=== PATIENT | male | born 1995 | race Two or more races ===

== ENCOUNTER 2021-04-14 16:09 | Inpatient (IN) | payer OTHER ==
[~2021-04-14] VITALS: Ht 180.3 cm; Wt 119.7 kg
[2021-04-14] MEDS ORDERED: Z GUARD REMEDY PASTE 57 GM TUBE TOP PRN (20:00)
[2021-04-14] MEDS ORDERED: OLAN15TA3 PO (23:17)
[2021-04-14] MEDS ORDERED: DOCU100C36 PO (23:17)
[2021-04-14] MEDS ORDERED: ACET-73 PO (23:17)
[2021-04-14] MEDS ORDERED: GABA-532 PO (23:17)
[2021-04-14] MEDS ORDERED: POLY119P2 PO (23:17)
[2021-04-14] MEDS ORDERED: HALO5TAB PO (23:17)
[2021-04-14] MEDS ORDERED: TEMA15CA PO (23:17)
[2021-04-14] MEDS ORDERED: SENN1TAB77 PO (23:17)
[2021-04-14] MEDS ORDERED: CITA10TA9 PO (23:17)
[2021-04-14] MEDS ORDERED: OXYC10TA49 PO (23:17)
[2021-04-14] MEDS ORDERED: MAGN30OR PO (23:17)
[2021-04-14] MEDS ORDERED: BISA-79 PO (23:17)
[2021-04-14] MEDS ORDERED: OXYC5CAP18 PO (23:17)
[2021-04-14] MEDS ORDERED: ENOX300V4 SQ (23:17)
[2021-04-14] MEDS ORDERED: QUET100T PO (23:17)
[2021-04-14 23:51] VITALS: BP 142/90
[2021-04-15] MEDS ORDERED: POLYETHYLENE GLYCOL 3350 238 GM POWDER PO SCH (00:15)
[2021-04-15] MEDS ORDERED: QUETIAPINE FUMARATE 100 MG TABLET PO PRN (00:15)
[2021-04-15] MEDS ORDERED: HALOPERIDOL 5 MG TABLET PO PRN ×2 (00:15→08:45)
[2021-04-15] MEDS ORDERED: TEMAZEPAM 15 MG CAPSULE PO SCH (00:15)
[2021-04-15] MEDS ORDERED: SENNOSIDES/DOCUSATE SODIUM TABLET PO SCH (00:15)
[2021-04-15] MEDS ORDERED: PIPERACILLIN SODIUM/TAZOBACTAM 3.375 G in IV DEXTROSE 5% 50 ML IV ONE (00:45)
[2021-04-15] MEDS: OXYCODONE HCL 5 MG TABLET PO PRN ×3 (01:14→20:50)
[2021-04-15] MEDS ORDERED: PIPERACILLIN/TAZOBACTAM/D5W 50 ML IV ONE (01:36)
--- NOTE | 2021-04-15 04:33 | NUR ---
Received a 25 yr old male from [facility] with admitting diagnosis of pelvic fracture secondary to fall. Patient also has fracture of right elbow where he has surgery S/P ORIF of the right elbow. RUE with splint and with kamlesh wrap then with an arm sling. (+) good pulse, no edema, (+) CSM. able to wiggle fingers. AAOx3-4 with some periods of hallucinations at times. Dr Barrios aware of patient's admission as Dr Heredia. Complained of pelvic pain, Oxycodone 10 mg given as ordered with relief noted. Voiding well in the urinal. BM noted this shift. Has left hand #22 INT flushed and patent, Zosyn 3.375 given as ordered. All due meds given as needed. Skin wylie, patient has some bruises on his right leg, right forehead laceration, lips cracked and dry. Will monitor patient.
[2021-04-15 04:57] VITALS: BP 144/89
[2021-04-15] MEDS: ACETAMINOPHEN ES 500 MG TABLET PO SCH ×3 (05:45→23:17)
[2021-04-15] MEDS ORDERED: PIPERACILLIN SODIUM/TAZOBACTAM 3.375 G in IV DEXTROSE 5% 50 ML IV SCH (06:00)
--- NOTE | 2021-04-15 06:53 | NUR ---
End of shift notes: Sleeping on & off. Needs attended. Voiding freely in urinal. IV ABT given as scheduled. Tolerated well. No ill effects noted. Will monitor patient.
--- NOTE | 2021-04-15 07:49 | NUR ---
Received in bed awake and responsive. In no acute distress. Noted with RUE wrap with kamlesh bandage and sling. No bleeding noted. Dressing is intact. Patient is able to move fingers. No edema noted. Denies pain on right upper extremity. He is comfortable. Call light in reach. Will continue to monitor.
[2021-04-15 08:00] VITALS: BP 142/82
[2021-04-15] MEDS ORDERED: SENNOSIDES/DOCUSATE SODIUM TABLET PO PRN (08:32)
[2021-04-15] MEDS: DOCUSATE SODIUM 100 MG CAPSULE PO SCH ×2 (08:38→16:22)
[2021-04-15] MEDS: OLANZAPINE 5 MG TABLET PO SCH ×2 (08:39→16:23)
[2021-04-15] MEDS: GABAPENTIN 100 MG CAPSULE PO SCH ×3 (08:39→16:22)
[2021-04-15] MEDS ORDERED: ENOXAPARIN SODIUM 40 MG/0.4 ML DISP.SYRIN SQ SCH (09:00)
[2021-04-15] MEDS ORDERED: HYDROCODONE/APAP 10-325 MG TABLET PO PRN (09:00)
[2021-04-15] MEDS ORDERED: BISACODYL 5 MG TABLET.DR PO SCH ×2 (09:00)
[2021-04-15] MEDS ORDERED: ENOXAPARIN SODIUM 30 MG/0.3 ML DISP.SYRIN SQ SCH (09:00)
[2021-04-15] MEDS: PIPERACILLIN SODIUM/TAZOBACTAM 3.37 G in IV DEXTROSE 5% 100 ML IV SCH ×3 (09:55→23:17)
--- NOTE | 2021-04-15 10:28 | NUR ---
JUSTO Note: JUSTO requested for a Psychiatry Consult for patient and spoke with nurse, Simi PULLIAM who confirmed she will put in the request.
[2021-04-15] MEDS ORDERED: BISACODYL 10 MG SUPP.RECT RC PRN (10:30)
[2021-04-15] MEDS: CITALOPRAM 10 MG TABLET PO SCH (10:32)
[2021-04-15] MEDS ORDERED: BISA10SU61 RC (10:33)
[2021-04-15] MEDS ORDERED: HALO5VIA9 IM (10:36)
[2021-04-15] MEDS ORDERED: HALOPERIDOL LACTATE 5 MG/1 ML VIAL IM PRN (10:45)
[2021-04-15 10:46] LABS: BASOPHILS # (AUTO) 0.1 K/uL (0.0-8.0); BASOPHILS % (AUTO) 0.8 % (0.0-2.0); EOSINOPHILS # (AUTO) 0.2 K/uL (0.0-0.7); EOSINOPHILS % (AUTO) 1.7 % (0.0-7.0); HEMATOCRIT 34.2 % (36.7-47.1); HEMOGLOBIN 11.7 g/dL (12.5-16.3); LYMPHOCYTES # (AUTO) 1.6 K/uL (20.0-40.0); LYMPHOCYTES % (AUTO) 15.4 % (20.5-51.5); MEAN CORPUSCULAR HEMOGLOBIN 30.7 uug (23.8-33.4); MEAN CORPUSCULAR HGB CONC 34 g/dL (32.5-36.3); MEAN CORPUSCULAR VOLUME 89.7 fL (73.0-96.2); MONOCYTES % (AUTO) 9.5 % (0.0-11.0); NEUTROPHILS # (AUTO) 7.4 K/uL (1.8-8.9); NEUTROPHILS % (AUTO) 72.6 % (38.5-71.5); PLATELET COUNT (AUTO) 903 K/uL (152-348); RED BLOOD CELL COUNT(AUTO) 3.81 MIL/uL (4.06-5.63); WHITE BLOOD COUNT (AUTO) 10.2 K/uL (3.6-10.2)
[2021-04-15 10:54] LABS: BILIRUBIN,TOTAL 0.6 mg/dL (0.2-1.0); CREATININE 0.8 mg/dL (0.6-1.3); POTASSIUM 3.5 mmol/L (3.5-5.1); TOTAL PROTEIN, SERUM 7.4 g/dL (6.4-8.2)
--- NOTE | 2021-04-15 13:07 | NUR ---
Called to patient's room found IV on left hand pulled out by the patient. He was mumbling to himself that he was scared that the snake was going to bite him and that he was anxious about a can marker laughing at him about a court case. Reoriented patient. Agreed to insert another iv line after lunch.
[2021-04-15] MEDS ORDERED: LORAZEPAM 2 MG/1 ML VIAL IV PRN (15:00)
[2021-04-15 16:21] VITALS: BP 136/87
[2021-04-15] MEDS: QUETIAPINE FUMARATE 100 MG TABLET PO SCH (16:25)
--- NOTE | 2021-04-15 19:30 | NUR ---
PATIENT AWAKE IN BED, NO COMPLAINS OF ANY PAIN OR DISCOMFORT AT THIS TIME. WILL REPORT TO ONCOMING SHIFT.
[2021-04-15 20:00] VITALS: BP 130/73
[2021-04-16] MEDS: TEMAZEPAM 15 MG CAPSULE PO PRN (00:05)
[2021-04-16 04:00] VITALS: BP 126/71
[2021-04-16] MEDS: PIPERACILLIN SODIUM/TAZOBACTAM 3.37 G in IV DEXTROSE 5% 100 ML IV SCH (06:53)
[2021-04-16] MEDS: ACETAMINOPHEN ES 500 MG TABLET PO SCH ×3 (06:56→21:00)
--- NOTE | 2021-04-16 07:20 | NUR ---
received report, patient in bed sleeping, arousal to name. no complains of any discomfort. call light within reach. will continue to monitor.
[2021-04-16] MEDS: OXYCODONE HCL 5 MG TABLET PO PRN (08:40)
[2021-04-16] MEDS: GABAPENTIN 100 MG CAPSULE PO SCH ×3 (08:40→16:49)
[2021-04-16] MEDS: CITALOPRAM 10 MG TABLET PO SCH (08:40)
[2021-04-16] MEDS: QUETIAPINE FUMARATE 100 MG TABLET PO SCH ×2 (08:40→16:49)
[2021-04-16] MEDS: ENOXAPARIN SODIUM 40 MG/0.4 ML DISP.SYRIN SQ SCH (08:47)
[2021-04-16] MEDS: OLANZAPINE 5 MG TABLET PO SCH ×2 (09:00→16:50)
[2021-04-16] MEDS: DOCUSATE SODIUM 100 MG CAPSULE PO SCH ×2 (09:00→16:49)
[2021-04-16 10:47] VITALS: BP 136/77
--- NOTE | 2021-04-16 14:50 | NUR ---
notified BOWLING ALLEY MANAGER Pola Villatoro, patient very sleepy during physical therapy,but arousable to name. per BOWLING ALLEY MANAGER Pola Villatoro ammonia level was ordered.
[2021-04-16 15:18] VITALS: BP 123/69
--- NOTE | 2021-04-16 16:00 | NUR ---
patient awake and alert x4, no complain of pain or discomfort. assisted to use urinal, patient requested food. patient called his family. call light within reach. will continue to monitor.
--- NOTE | 2021-04-16 18:32 | NUR ---
patient in bed sleeping arousable to name, no complains of any pain or discomfort, call light kept within reach. will report to oncoming shift.
--- NOTE | 2021-04-16 19:45 | NUR ---
Patient asleep but arousable, girlfriend at bedside, patient look comfortable, no sob no chest pain, uses urinal for elimination, cont to monitor, r arm with sling.
[2021-04-16 20:00] VITALS: BP 135/82
[2021-04-17 04:38] VITALS: BP 125/80
[2021-04-17] MEDS: OXYCODONE HCL 5 MG TABLET PO PRN ×3 (04:52→18:21)
--- NOTE | 2021-04-17 05:52 | NUR ---
Patient complain of pelvic pain, r shoulder, given oxy 10mg po for pain, but still have pain, crying, and moaning, assisted with positioning but not effective, will assess again in few minutes.
[2021-04-17] MEDS: ACETAMINOPHEN ES 500 MG TABLET PO SCH ×3 (06:00→21:29)
[2021-04-17] MEDS: HYDROMORPHONE 1 MG/1 ML DISP.SYRIN IV PRN ×2 (06:04→12:09)
--- NOTE | 2021-04-17 06:04 | NUR ---
Patient still complain of pain, crying for pain, given dilaudid 0.5mg iv for breakthrough pain, cont to monitor.
[2021-04-17] MEDS: OLANZAPINE 5 MG TABLET PO SCH ×2 (08:16→16:59)
[2021-04-17] MEDS: DOCUSATE SODIUM 100 MG CAPSULE PO SCH ×2 (08:16→16:59)
[2021-04-17] MEDS: CITALOPRAM 10 MG TABLET PO SCH (08:16)
[2021-04-17] MEDS: GABAPENTIN 100 MG CAPSULE PO SCH ×3 (08:17→16:59)
[2021-04-17] MEDS: QUETIAPINE FUMARATE 100 MG TABLET PO SCH ×2 (08:17→16:59)
[2021-04-17] MEDS: ENOXAPARIN SODIUM 40 MG/0.4 ML DISP.SYRIN SQ SCH (08:21)
[2021-04-17 08:27] VITALS: BP 129/83
--- NOTE | 2021-04-17 10:45 | NUR ---
Dilaudid 1mg wasted with another nurse on duty Yenny PULLIAM
[2021-04-17 15:58] VITALS: BP 125/77
[2021-04-17] MEDS: MIRALAX 17 GM POWD.PACK PO PRN (17:01)
[2021-04-17 20:34] VITALS: BP 136/82
[2021-04-17] MEDS: MORPHINE SULFATE SR 15 MG TABLET.SA PO SCH (20:35)
--- NOTE | 2021-04-17 21:27 | NUR ---
Received resting in bed awake and responsive, watching TV. Axox4, In no acute distress. Noted with RUE wrap with kamlesh bandage and sling. Dressing is intact. Patient is able to move fingers. No edema noted, cap refill less than 3 sec. C/O 9/10 pain in right side of pelvis/tail bone. Denies pain on right upper extremity. Administered scheduled MS contin. Call light in reach. Safety measures maintained. Will continue to monitor.
[2021-04-18] MEDS: OXYCODONE HCL 5 MG TABLET PO PRN ×3 (02:08→18:56)
--- NOTE | 2021-04-18 02:08 | NUR ---
c/o 8/10 pain in pelvis area administered PRN OXYIR.
[2021-04-18 04:00] VITALS: BP 127/84
[2021-04-18] MEDS: ACETAMINOPHEN ES 500 MG TABLET PO SCH ×3 (06:28→21:35)
[2021-04-18 08:00] VITALS: BP_SYST 108; BP_SYST 136; BP_DIAS 49; BP_DIAS 70
[2021-04-18] MEDS: DOCUSATE SODIUM 100 MG CAPSULE PO SCH ×2 (08:03→16:14)
[2021-04-18] MEDS: CITALOPRAM 10 MG TABLET PO SCH (08:03)
[2021-04-18] MEDS: MORPHINE SULFATE SR 15 MG TABLET.SA PO SCH ×2 (08:03→20:34)
[2021-04-18] MEDS: GABAPENTIN 100 MG CAPSULE PO SCH ×3 (08:03→16:14)
[2021-04-18] MEDS: ENOXAPARIN SODIUM 40 MG/0.4 ML DISP.SYRIN SQ SCH (08:07)
[2021-04-18] MEDS: MIRALAX 17 GM POWD.PACK PO PRN (08:10)
[2021-04-18] MEDS: QUETIAPINE FUMARATE 100 MG TABLET PO SCH ×2 (08:44→16:14)
[2021-04-18] MEDS: OLANZAPINE 5 MG TABLET PO SCH ×2 (08:44→16:14)
[2021-04-18 15:24] VITALS: BP 143/80
--- NOTE | 2021-04-18 19:26 | NUR ---
no changes noted, pain is well managed, incision site is clean and dry, good capillary refill on left fingers, no distress noted
[2021-04-18 20:29] VITALS: BP 136/86
[2021-04-19] MEDS: OXYCODONE HCL 5 MG TABLET PO PRN ×3 (03:36→18:05)
[2021-04-19 04:50] VITALS: BP 130/65
--- NOTE | 2021-04-19 05:50 | NUR ---
Received resting in bed awake and responsive, watching TV. Axox4, C/O 9/10 pain in right side of pelvis/tail bone. Assisted pt to the bathroom on commode with BM x1. All due medications administered. Patient slept well and c/o 7/10 pain around 0330 administered PRN OXYIR, effective. Call light in reach. Safety measures maintained. Will continue to monitor.
[2021-04-19] MEDS: ACETAMINOPHEN ES 500 MG TABLET PO SCH ×3 (06:30→21:35)
[2021-04-19] MEDS: GABAPENTIN 100 MG CAPSULE PO SCH ×3 (08:13→16:58)
[2021-04-19] MEDS: CITALOPRAM 10 MG TABLET PO SCH (08:13)
[2021-04-19] MEDS: DOCUSATE SODIUM 100 MG CAPSULE PO SCH ×2 (08:13→16:58)
[2021-04-19] MEDS: QUETIAPINE FUMARATE 100 MG TABLET PO SCH ×2 (08:13→16:58)
[2021-04-19] MEDS: OLANZAPINE 5 MG TABLET PO SCH ×2 (08:13→16:58)
[2021-04-19] MEDS: MORPHINE SULFATE SR 15 MG TABLET.SA PO SCH ×2 (08:14→20:40)
[2021-04-19] MEDS: ENOXAPARIN SODIUM 40 MG/0.4 ML DISP.SYRIN SQ SCH (08:17)
[2021-04-19 08:47] VITALS: BP 129/73
--- NOTE | 2021-04-19 11:09 | NUR ---
Received patent in bed, alert and oriented x 4, pleasant and cooperative upon assessment. All due meds given per MD order , tolerated well. Placed call light and urinal within reach. All needs met promptly. Bandage changed on the right arm. Will continue to monitor.
[2021-04-19 16:17] VITALS: BP 118/72
[2021-04-19 20:29] VITALS: BP 123/80
[2021-04-20] MEDS: OXYCODONE HCL 5 MG TABLET PO PRN ×3 (01:42→16:26)
[2021-04-20 04:49] VITALS: BP 129/75
[2021-04-20] MEDS: ACETAMINOPHEN ES 500 MG TABLET PO SCH ×3 (05:50→21:21)
[2021-04-20 08:00] VITALS: BP 116/69
[2021-04-20] MEDS: GABAPENTIN 100 MG CAPSULE PO SCH ×3 (08:08→16:25)
[2021-04-20] MEDS: CITALOPRAM 10 MG TABLET PO SCH (08:08)
[2021-04-20] MEDS: DOCUSATE SODIUM 100 MG CAPSULE PO SCH ×2 (08:08→16:25)
[2021-04-20] MEDS: OLANZAPINE 5 MG TABLET PO SCH ×2 (08:09→16:25)
[2021-04-20] MEDS: QUETIAPINE FUMARATE 100 MG TABLET PO SCH ×2 (08:09→16:25)
[2021-04-20] MEDS: ENOXAPARIN SODIUM 40 MG/0.4 ML DISP.SYRIN SQ SCH (08:10)
[2021-04-20] MEDS: MORPHINE SULFATE SR 15 MG TABLET.SA PO SCH ×2 (08:13→21:20)
[2021-04-20 16:20] VITALS: BP 114/50
--- NOTE | 2021-04-20 16:34 | NUR ---
Pt in bed watching TV, no acute distress, VSS. Pt denies hallucinations at this time. Due medications given per order, no a/r noted. Pt declined to fully participate in therapy today due to "too much pain". Pt reported 8/10 pain in Right hip and tail bone, scheduled and PRN pain medications administered per order, Dr. Heredia aware, new order for pelvic x-ray in place. RUE dressing clean, dry, intact. Pt able to move fingers, capillary refill less than 3 seconds, no edema noted, pt denies numbness, tingling, pain in RUE. Safety measures and fall precautions maintained. Call light and belongings in reach.
[2021-04-20] MEDS: ENSURE ENLIVE (VAN) 240 ML LIQUID PO SCH (17:34)
--- NOTE | 2021-04-20 18:52 | NUR ---
Pt resting in bed, easily arousable to name, no acute distress. Pt stated he is able to comfortably rest at this time but still in "some pain". Informed pt no due pain medications at this time, offered pt ice pack, pt refused. No BM noted today. Will endorse to shift mechanic nurse for continuity of care.
[2021-04-20 20:21] VITALS: BP 130/79
[2021-04-21] MEDS: OXYCODONE HCL 5 MG TABLET PO PRN ×2 (00:53→15:16)
[2021-04-21 04:33] VITALS: BP 137/76
[2021-04-21] MEDS: ACETAMINOPHEN ES 500 MG TABLET PO SCH ×3 (05:43→21:35)
[2021-04-21 08:07] VITALS: BP 125/85
[2021-04-21] MEDS: DOCUSATE SODIUM 100 MG CAPSULE PO SCH ×2 (08:11→17:32)
[2021-04-21] MEDS: CITALOPRAM 10 MG TABLET PO SCH (08:11)
[2021-04-21] MEDS: QUETIAPINE FUMARATE 100 MG TABLET PO SCH ×2 (08:12→17:32)
[2021-04-21] MEDS: OLANZAPINE 5 MG TABLET PO SCH ×2 (08:12→17:32)
[2021-04-21] MEDS: GABAPENTIN 100 MG CAPSULE PO SCH ×3 (08:12→17:32)
[2021-04-21] MEDS: ENSURE ENLIVE (VAN) 240 ML LIQUID PO SCH ×2 (08:12→17:32)
[2021-04-21] MEDS: MORPHINE SULFATE SR 15 MG TABLET.SA PO SCH ×2 (08:13→20:50)
[2021-04-21] MEDS: ENOXAPARIN SODIUM 40 MG/0.4 ML DISP.SYRIN SQ SCH (08:15)
--- NOTE | 2021-04-21 10:47 | NUR ---
Pt in bed watching TV, no acute distress noted. Pt denied hallucinations at this time. Pt reported pain 7/10 this am, scheduled MS Contin administered per order, per pt effective. Pt participated with Rehab Therapy this am, OOB and safely ambulated to bathroom with tripod cane, 1 BM in toilet noted. RUE bandage changed with OT. Keith intact, dry, clean, no swelling, redness, or other s/s of infection noted. Pt able to wiggle fingers, cap refill less than 3 seconds, denied RUE pain, numbness, tingling. No odor noted. Pelvic X-ray results up, Dr. Heredia made aware. Continue rehab plan of care.
[2021-04-21 13:53] LABS: CREATININE 0.9 mg/dL (0.6-1.3); POTASSIUM 3.9 mmol/L (3.5-5.1)
[2021-04-21 13:56] LABS: BASOPHILS # (AUTO) 0.1 K/uL (0.0-8.0); BASOPHILS % (AUTO) 1.2 % (0.0-2.0); EOSINOPHILS # (AUTO) 0.1 K/uL (0.0-0.7); EOSINOPHILS % (AUTO) 1.6 % (0.0-7.0); HEMATOCRIT 34.2 % (36.7-47.1); HEMOGLOBIN 11.5 g/dL (12.5-16.3); LYMPHOCYTES # (AUTO) 1.5 K/uL (20.0-40.0); MEAN CORPUSCULAR HEMOGLOBIN 30.3 uug (23.8-33.4); MEAN CORPUSCULAR HGB CONC 34 g/dL (32.5-36.3); MEAN CORPUSCULAR VOLUME 90.1 fL (73.0-96.2); MONOCYTES # (AUTO) 0.5 K/uL (2.0-10.0); MONOCYTES % (AUTO) 7.3 % (0.0-11.0); NEUTROPHILS # (AUTO) 4.4 K/uL (1.8-8.9); NEUTROPHILS % (AUTO) 66.9 % (38.5-71.5); PLATELET COUNT (AUTO) 754 K/uL (152-348); WHITE BLOOD COUNT (AUTO) 6.6 K/uL (3.6-10.2)
[2021-04-21 15:21] VITALS: BP 98/51
--- NOTE | 2021-04-21 18:01 | NUR ---
Pt finishing dinner and watching TV. No acute distress. All needs met at this time. Pt reported pain 7/10 on adult scale this afternoon, PRN Oxyir administered per order. Dr. Heredia at bedside this afternoon, spoke with pt, discussed x-ray results, new order in place. Pt noted with increased amount of urine output, urine appeared pale, Dr. Guerrero made aware. Call light and belongings within reach. Will endorse to power plant mechanic nurse for continuity of care.
[2021-04-21 20:00] VITALS: BP 131/72
[2021-04-22] MEDS: OXYCODONE HCL 5 MG TABLET PO PRN ×2 (02:00→12:29)
--- NOTE | 2021-04-22 02:48 | NUR ---
AAOx4 Ambulatory as desired. Right elbow dressing clean dry and intact. VSS. Needs attended. Voiding in urinal. Pain meds given as needed. Kept comfortable. Will monitor patient. No acute distress noted.
[2021-04-22 05:44] VITALS: BP_SYST 11
[2021-04-22 05:46] VITALS: BP 106/65
[2021-04-22] MEDS: ACETAMINOPHEN ES 500 MG TABLET PO SCH ×3 (05:52→21:21)
[2021-04-22 07:39] VITALS: BP 137/74
[2021-04-22] MEDS: DOCUSATE SODIUM 100 MG CAPSULE PO SCH ×3 (08:40→16:47)
[2021-04-22] MEDS: CITALOPRAM 10 MG TABLET PO SCH (08:40)
[2021-04-22] MEDS: ENSURE ENLIVE (VAN) 240 ML LIQUID PO SCH ×2 (08:41→16:47)
[2021-04-22] MEDS: QUETIAPINE FUMARATE 100 MG TABLET PO SCH ×2 (08:42→16:46)
[2021-04-22] MEDS: OLANZAPINE 5 MG TABLET PO SCH ×2 (08:42→16:46)
[2021-04-22] MEDS: GABAPENTIN 100 MG CAPSULE PO SCH ×3 (08:42→16:46)
[2021-04-22] MEDS: MORPHINE SULFATE SR 15 MG TABLET.SA PO SCH ×2 (08:42→20:18)
[2021-04-22] MEDS: ENOXAPARIN SODIUM 40 MG/0.4 ML DISP.SYRIN SQ SCH (08:44)
--- NOTE | 2021-04-22 09:50 | NUR ---
Pt in no acute distress, resting in bed after physical therapy. Per PT pt tolerated activity well, ambulated safely with tripod cane. Pt reported pain 06/06 this am, MS Contin administered per order, upon reassessment pt reported 03/07, per pt adjusted dosage "helped a lot". Pt denied hallucinations at this time. RUE bandage clean, dry, intact. Pt denied R arm pain, numbness, tingling, can move fingers, cap refill less than 3 seconds. Continue rehab plan of care.
[2021-04-22 15:43] VITALS: BP 137/77
--- NOTE | 2021-04-22 18:28 | NUR ---
Pt resting in bed after dinner, no acute distress. All needs met at this time. Due medications given per order, no a/r noted. Pt refused Colace today, pt right to refuse respected. Pt received shower with today with OT. Dr. Guerrero aware of pts urine output and PO intake. Call light and belongings within reach. Will endorse to caustic cresylate shift superintendent nurse for continuity of care.
[2021-04-22 20:15] VITALS: BP 140/77
[2021-04-22 20:20] VITALS: BP 140/77
[2021-04-23] MEDS: OXYCODONE HCL 5 MG TABLET PO PRN ×2 (01:26→12:06)
--- NOTE | 2021-04-23 01:54 | NUR ---
AAOx4 OOB to the BR with tripod cane. VSS. Needs attended. Pain meds given as needed. Relief noted. RUE with kamlesh wrap dressing clean dry and intact. All needs attended. Voiding well.
[2021-04-23 04:25] VITALS: BP 135/69
[2021-04-23] MEDS: ACETAMINOPHEN ES 500 MG TABLET PO SCH ×3 (05:36→21:09)
[2021-04-23] MEDS: GABAPENTIN 100 MG CAPSULE PO SCH ×3 (08:00→16:03)
[2021-04-23] MEDS: DOCUSATE SODIUM 100 MG CAPSULE PO SCH ×2 (08:00→16:03)
[2021-04-23] MEDS: OLANZAPINE 5 MG TABLET PO SCH ×2 (08:00→16:03)
[2021-04-23] MEDS: CITALOPRAM 10 MG TABLET PO SCH (08:00)
[2021-04-23] MEDS: QUETIAPINE FUMARATE 100 MG TABLET PO SCH ×2 (08:00→16:03)
[2021-04-23] MEDS: ENSURE ENLIVE (VAN) 240 ML LIQUID PO SCH ×2 (08:01→16:04)
[2021-04-23] MEDS: MORPHINE SULFATE SR 15 MG TABLET.SA PO SCH ×2 (08:01→21:09)
[2021-04-23] MEDS: ENOXAPARIN SODIUM 40 MG/0.4 ML DISP.SYRIN SQ SCH (08:02)
[2021-04-23 08:05] VITALS: BP 124/74
[2021-04-23] MEDS: MIRALAX 17 GM POWD.PACK PO PRN (12:06)
[2021-04-23 14:02] VITALS: BP 114/58
--- NOTE | 2021-04-23 19:45 | NUR ---
RECEIVED PATIENT ASLEEP IN BED. EASILY AROUSABLE. A/O X4. NO C/O PAIN OR DISCOMFORT AT THIS TIME. NO RESP. DISTRESS NOTED. RIGHT ARM NOTED IN SLING. NEURO-VASCULAR CHECKS WNL. CALL LIGHT IN REACH. ALL NEEDS ATTENDED, WILL CONTINUE TO MONITOR AND ASSESS.
[2021-04-23 20:15] VITALS: BP 130/85
[2021-04-24] MEDS: OXYCODONE HCL 5 MG TABLET PO PRN ×2 (02:01→15:03)
[2021-04-24 04:15] VITALS: BP 132/74
[2021-04-24] MEDS: ACETAMINOPHEN ES 500 MG TABLET PO SCH ×3 (06:04→22:09)
[2021-04-24 07:30] VITALS: BP 140/84
[2021-04-24] MEDS: CITALOPRAM 10 MG TABLET PO SCH (08:02)
[2021-04-24] MEDS: QUETIAPINE FUMARATE 100 MG TABLET PO SCH ×2 (08:02→16:13)
[2021-04-24] MEDS: OLANZAPINE 5 MG TABLET PO SCH ×2 (08:02→16:13)
[2021-04-24] MEDS: DOCUSATE SODIUM 100 MG CAPSULE PO SCH ×2 (08:02→16:13)
[2021-04-24] MEDS: ENSURE ENLIVE (VAN) 240 ML LIQUID PO SCH ×2 (08:02→16:14)
[2021-04-24] MEDS: MORPHINE SULFATE SR 15 MG TABLET.SA PO SCH ×2 (08:02→22:09)
[2021-04-24] MEDS: GABAPENTIN 100 MG CAPSULE PO SCH ×3 (08:02→16:13)
[2021-04-24] MEDS: ENOXAPARIN SODIUM 40 MG/0.4 ML DISP.SYRIN SQ SCH (08:04)
[2021-04-24 15:38] VITALS: BP 98/58
[2021-04-24 20:44] VITALS: BP 136/78
[2021-04-25] MEDS: OXYCODONE HCL 5 MG TABLET PO PRN (03:48)
[2021-04-25 04:00] VITALS: BP 135/90
--- NOTE | 2021-04-25 05:11 | NUR ---
Starting of shift received Pt in no acute distress, resting in bed watching TV, Per nurse pt tolerated activity well With PT ambulated safely with tripod cane. All due medication administered as ordered continue on pain management medication as ordered helped later in shift Pt reported moderate Pain in lower tail bone ,PRN Oxiyr administered as ordered for PRN pain management upon reassessment pt sleeping well, RUE bandage clean, dry, intact. Pt denied R arm pain, numbness, tingling, can move fingers, cap refill less than 3 seconds. Continue rehab plan of care. safety measures taken all time. Call light with in reach. will endorse accordingly to AM nurse.
[2021-04-25] MEDS: ACETAMINOPHEN ES 500 MG TABLET PO SCH ×3 (06:43→22:59)
[2021-04-25] MEDS: DOCUSATE SODIUM 100 MG CAPSULE PO SCH ×2 (07:54→16:00)
[2021-04-25] MEDS: OLANZAPINE 5 MG TABLET PO SCH ×2 (07:54→16:00)
[2021-04-25] MEDS: QUETIAPINE FUMARATE 100 MG TABLET PO SCH ×2 (07:55→16:00)
[2021-04-25] MEDS: CITALOPRAM 10 MG TABLET PO SCH (07:55)
[2021-04-25] MEDS: GABAPENTIN 100 MG CAPSULE PO SCH ×3 (07:55→16:03)
[2021-04-25] MEDS: MORPHINE SULFATE SR 15 MG TABLET.SA PO SCH (07:56)
[2021-04-25] MEDS: ENOXAPARIN SODIUM 40 MG/0.4 ML DISP.SYRIN SQ SCH (07:57)
[2021-04-25 08:00] VITALS: BP 126/78
--- NOTE | 2021-04-25 08:53 | NUR ---
alert, oriented, RFA with kamlesh bandage wrapped up. Asked whether he could get his MS contin earlier then scheduled time, request honored checked back, denied any discomfort, and resting
[2021-04-25] MEDS: ENSURE ENLIVE (VAN) 240 ML LIQUID PO SCH ×2 (09:23→16:09)
--- NOTE | 2021-04-25 12:41 | NUR ---
INDIVIDUALIZED PLAN OF CARE
[2021-04-25 15:04] VITALS: BP 118/65
[2021-04-25] MEDS: MIRALAX 17 GM POWD.PACK PO PRN (17:48)
--- NOTE | 2021-04-25 17:54 | NUR ---
very subdued today, checked almost hourly to make sure the pain on R elbow, and R pelvic under control, did not ask for extra pain meds. 1744 c/o of constipation, last bm, . Prune juice , and Miralax given, aware if no good result, patient can have Dulcolax supp tonight.
[2021-04-25 20:20] VITALS: BP 138/84
[2021-04-25] MEDS: MORPHINE SULFATE SR 30 MG TABLET.SA PO SCH (20:26)
--- NOTE | 2021-04-25 21:16 | NUR ---
Received pt sleeping comfortably. Aroused easily to verbal stimuli. AAO x4. No acute distress noted. C/o moderate pain on the right elbow and pelvic area, routine pain med given as ordered. Safety measures maintained. Call light and personal items within reach. Will continue to monitor.
[2021-04-26] MEDS: OXYCODONE HCL 5 MG TABLET PO PRN (01:13)
[2021-04-26 04:15] VITALS: BP 121/79
[2021-04-26] MEDS: ACETAMINOPHEN ES 500 MG TABLET PO SCH ×3 (06:12→21:12)
--- NOTE | 2021-04-26 06:22 | NUR ---
Pt refused suppository last night, but agreed to take kenneth colace.
[2021-04-26] MEDS: CITALOPRAM 10 MG TABLET PO SCH (08:55)
[2021-04-26] MEDS: DOCUSATE SODIUM 100 MG CAPSULE PO SCH ×2 (08:56→18:03)
[2021-04-26] MEDS: OLANZAPINE 5 MG TABLET PO SCH ×2 (08:56→18:03)
[2021-04-26] MEDS: GABAPENTIN 100 MG CAPSULE PO SCH ×3 (08:56→18:03)
[2021-04-26] MEDS: QUETIAPINE FUMARATE 100 MG TABLET PO SCH ×2 (08:56→18:03)
[2021-04-26] MEDS: ENSURE ENLIVE (VAN) 240 ML LIQUID PO SCH ×2 (08:57→18:03)
[2021-04-26] MEDS: MORPHINE SULFATE SR 30 MG TABLET.SA PO SCH ×2 (08:58→20:00)
[2021-04-26] MEDS: ENOXAPARIN SODIUM 40 MG/0.4 ML DISP.SYRIN SQ SCH (09:02)
[2021-04-26 10:32] VITALS: BP 133/83
--- NOTE | 2021-04-26 11:00 | NUR ---
Patient complained of constipation and requested for suppository, given PRN suppository as ordered. Patient is compliant with medications and care. Assisted patient with his needs promptly. Call light and frequently used items placed within patient's reach.
[2021-04-26 16:19] VITALS: BP 128/74
[2021-04-26 20:28] VITALS: BP 127/77
--- NOTE | 2021-04-26 20:37 | NUR ---
Received pt resting in bed with visitor at bedside. AAO x4. No acute distress noted. C/o 6/10 pain on the tailbone area and right arm. Routine pain med given as ordered. Safety measures maintained. Call light and personal items within reach. Will continue to monitor.
[2021-04-26] MEDS ORDERED: ONDANSETRON ODT 4 MG TAB.RAPDIS SL PRN (21:45)
--- NOTE | 2021-04-26 22:12 | NUR ---
Pt c/o of nausea and dizziness. Pt's BP increased 141/ 86, HR 138, RR 20. Prior VS were BP 127/77, HR 120, RR 18. Pt was given MS Contin an hour prior to elevated BP. Notified Justin MARISELA with new orders: EKG and CXR STAT, Trop x1 STAT, UA, Urine drug screen, and Zofran 4mg SL Q6H PRN. EKG result relayed to Justin MARISELA. Pt unable to urinate yet. [facility] called to order for straight cath, but pt already able to provide urine sample during the call. Urine sent to lab. Zofran given. Pt stated that he already feels a bit better. Will continue to monitor. Addendum: 04/26/21 at 2221 by Tammy Conway RN Denies CP, SOB.
[2021-04-26 22:20] LABS: *BILIRUBIN,URIN NEGATIVE (NEGATIVE); *BLOOD, URINE NEGATIVE (NEGATIVE); *CLARITY,URINE CLEAR (CLEAR); *COLOR,URINE YELLOW (YELLOW); *KETONES,URINE NEGATIVE (NEGATIVE); *UROBILINOGEN,URINE 0.2 E.U./dl (NORMAL); LEUKOCYTE ESTERASE ,URINE NEGATIVE (NEGATIVE); NITRITE, URINE NEGATIVE (NEGATIVE); PH,URINE 6.5 (5.0-8.0); UGLUCOSE NEGATIVE (NEGATIVE)
[2021-04-26 22:30] LABS: *AMPHETAMINE, URINE NEGATIVE (NEGATIVE); *CANNABINOID, URINE NEGATIVE (NEGATIVE); *COCCAINE, URINE NEGATIVE (NEGATIVE); *OPIATE, URINE POSITIVE (NEGATIVE); *PHENCYCLIDINE SCREEN,URINE NEGATIVE (NEGATIVE)
[2021-04-26] MEDS ORDERED: LORAZEPAM 2 MG/1 ML VIAL IM ONE (23:00)
--- NOTE | 2021-04-26 23:01 | NUR ---
Urine result relayed to Justin DNP. VS: BP 120/76, HR 100, RR 18, SpO2 95% RA. New order to given Ativan 1mg IM once. Will carry out order.
[2021-04-26 23:10] VITALS: BP 120/76
[2021-04-27 04:21] VITALS: BP 137/78
[2021-04-27] MEDS: ACETAMINOPHEN ES 500 MG TABLET PO SCH ×3 (05:43→20:44)
[2021-04-27 08:00] VITALS: BP 142/86
--- NOTE | 2021-04-27 09:10 | NUR ---
Pt reported feeling chest pain and "fast heart rate". Pt denies SOB, O2 saturation 99% on RA. BP 148/84, heart rate 119, RR 20. Dr Cesar Benitez notified with new order for stat troponin. Results relayed to Dr. Guerrero, no further orders at this time.
[2021-04-27] MEDS: CITALOPRAM 10 MG TABLET PO SCH (09:21)
[2021-04-27] MEDS: DOCUSATE SODIUM 100 MG CAPSULE PO SCH ×2 (09:21→16:41)
[2021-04-27] MEDS: GABAPENTIN 100 MG CAPSULE PO SCH ×3 (09:21→16:41)
[2021-04-27] MEDS: QUETIAPINE FUMARATE 100 MG TABLET PO SCH ×2 (09:21→16:41)
[2021-04-27] MEDS: OLANZAPINE 5 MG TABLET PO SCH ×2 (09:21→16:41)
[2021-04-27] MEDS: ENOXAPARIN SODIUM 40 MG/0.4 ML DISP.SYRIN SQ SCH (09:22)
[2021-04-27] MEDS: MORPHINE SULFATE SR 30 MG TABLET.SA PO SCH ×2 (09:25→20:44)
[2021-04-27] MEDS: ENSURE ENLIVE (VAN) 240 ML LIQUID PO SCH ×2 (09:25→17:10)
--- NOTE | 2021-04-27 15:00 | NUR ---
Pt stated feeling better, denies chest pain, SOB, palpitations, dizziness, N/V. Dr. Guerrero reviewed EKG from previous shift, no further orders at this time.
[2021-04-27 16:38] VITALS: BP 105/69
--- NOTE | 2021-04-27 18:48 | NUR ---
Pt in assigned room, no acute distress. No further reports of chest pain. Due medications given per order, no a/r noted. Pt able to participate with rehab therapy today, tolerated well. R upper arm rewrapped with PT, wound care administered, photo taken for chart. Atul well approximated. Per telehealth case manager, he will contact pt's surgeon tomorrow to see if surgeon would like atul removed. Will endorse to dispensary clerk nurse for continuity of care.
[2021-04-27 20:00] VITALS: BP 123/75
[2021-04-28 04:00] VITALS: BP 132/82
[2021-04-28] MEDS: ACETAMINOPHEN ES 500 MG TABLET PO SCH ×3 (05:31→21:40)
[2021-04-28 07:47] VITALS: BP 104/80
[2021-04-28] MEDS: OLANZAPINE 5 MG TABLET PO SCH ×2 (08:00→17:17)
[2021-04-28] MEDS: QUETIAPINE FUMARATE 100 MG TABLET PO SCH ×2 (08:00→17:17)
[2021-04-28] MEDS: GABAPENTIN 100 MG CAPSULE PO SCH ×3 (08:00→17:17)
[2021-04-28] MEDS: DOCUSATE SODIUM 100 MG CAPSULE PO SCH ×2 (08:00→17:19)
[2021-04-28] MEDS: MORPHINE SULFATE SR 30 MG TABLET.SA PO SCH ×2 (08:00→20:47)
[2021-04-28] MEDS: ENSURE ENLIVE (VAN) 240 ML LIQUID PO SCH ×2 (08:01→17:19)
[2021-04-28] MEDS: CITALOPRAM 10 MG TABLET PO SCH (08:01)
[2021-04-28] MEDS: ENOXAPARIN SODIUM 40 MG/0.4 ML DISP.SYRIN SQ SCH (08:05)
[2021-04-28] MEDS: OXYCODONE HCL 5 MG TABLET PO PRN (11:57)
[2021-04-28 16:00] VITALS: BP 130/78
--- NOTE | 2021-04-28 18:54 | NUR ---
patient is alert, oriented x4, no sob, no distress noted, patient tolerated PT, OT tolerated well.
[2021-04-28 21:28] VITALS: BP 126/83
--- NOTE | 2021-04-29 02:30 | NUR ---
AAOx4 Right arm dressing clean and dry. (+) pulses (+) good circulation Pain meds given as needed. VSS. Voiding well in the urinal. Will monitor patient.
[2021-04-29 05:31] VITALS: BP 128/83
[2021-04-29] MEDS: ACETAMINOPHEN ES 500 MG TABLET PO SCH ×3 (06:02→22:04)
[2021-04-29 06:40] LABS: BASOPHILS # (AUTO) 0.1 K/uL (0.0-8.0); EOSINOPHILS # (AUTO) 0.2 K/uL (0.0-0.7); EOSINOPHILS % (AUTO) 4.3 % (0.0-7.0); HEMATOCRIT 38.1 % (36.7-47.1); HEMOGLOBIN 12.8 g/dL (12.5-16.3); LYMPHOCYTES # (AUTO) 1.7 K/uL (20.0-40.0); LYMPHOCYTES % (AUTO) 31.1 % (20.5-51.5); MEAN CORPUSCULAR HEMOGLOBIN 30.1 uug (23.8-33.4); MEAN CORPUSCULAR HGB CONC 34 g/dL (32.5-36.3); MEAN CORPUSCULAR VOLUME 89.7 fL (73.0-96.2); MONOCYTES # (AUTO) 0.8 K/uL (2.0-10.0); MONOCYTES % (AUTO) 14.9 % (0.0-11.0); NEUTROPHILS # (AUTO) 2.6 K/uL (1.8-8.9); NEUTROPHILS % (AUTO) 48.7 % (38.5-71.5); PLATELET COUNT (AUTO) 441 K/uL (152-348); RED BLOOD CELL COUNT(AUTO) 4.24 MIL/uL (4.06-5.63); WHITE BLOOD COUNT (AUTO) 5.4 K/uL (3.6-10.2)
[2021-04-29 06:58] LABS: CARBON DIOXIDE 29 mmol/L (21-32); CHLORIDE 99 mmol/L (98-107); CREATININE 0.7 mg/dL (0.6-1.3); GLUCOSE 95 mg/dL (74-106); POTASSIUM 4.9 mmol/L (3.5-5.1); UREA NITROGEN, BLOOD 14 mg/dL (7-18)
[2021-04-29 08:00] VITALS: BP 126/75
[2021-04-29] MEDS: MORPHINE SULFATE SR 30 MG TABLET.SA PO SCH ×2 (08:21→21:37)
[2021-04-29] MEDS: CITALOPRAM 10 MG TABLET PO SCH (08:21)
[2021-04-29] MEDS: GABAPENTIN 100 MG CAPSULE PO SCH ×3 (08:21→17:40)
[2021-04-29] MEDS: DOCUSATE SODIUM 100 MG CAPSULE PO SCH ×2 (08:21→17:40)
[2021-04-29] MEDS: OLANZAPINE 5 MG TABLET PO SCH ×2 (08:22→17:40)
[2021-04-29] MEDS: QUETIAPINE FUMARATE 100 MG TABLET PO SCH ×2 (08:22→17:40)
[2021-04-29] MEDS: ENOXAPARIN SODIUM 40 MG/0.4 ML DISP.SYRIN SQ SCH (08:23)
[2021-04-29] MEDS: ENSURE ENLIVE (VAN) 240 ML LIQUID PO SCH ×2 (08:23→17:40)
[2021-04-29] MEDS: HYDROCODONE/APAP 10-325 MG TABLET PO PRN (15:34)
[2021-04-29 16:59] VITALS: BP 119/67
[2021-04-29] MEDS: MIRALAX 17 GM POWD.PACK PO PRN (17:41)
--- NOTE | 2021-04-29 19:09 | NUR ---
Pt in watching TV with a visitor, no acute distress, all needs met at this time. Denies N/V, chest pain, SOB. Due medications given per order, no a/r noted. Pt received ordered [place] PRN for pain 06/06, per pt, effective. Pt tolerated Rehab therapy well today, ambulated in hallway with PT. Pt received shower with OT. R upper arm rewrapped with OT, wound care administered, no swelling, redness, drainage noted, incision site well approximated. Per child welfare caseworker, awaiting response from pt's surgeon regarding atul. No BM noted today, PRN Miralax administered per order. Will endorse to machinist 2nd shift nurse for continuity of care.
--- NOTE | 2021-04-29 19:20 | NUR ---
Awake, watching TV with family member at bedside during initial rounds. No s/s of respiratory distress. HOB slightly elevated. Denies any pain/discomforts at this time. RUE with dressing dry and intact, elevated with pillows. No s/s circulation impairment toted. Safety measures and fall prevention maintained. Continue care as planned.
[2021-04-29 20:00] VITALS: BP 138/81
[2021-04-30] MEDS: HYDROCODONE/APAP 10-325 MG TABLET PO PRN ×2 (03:00→14:05)
[2021-04-30 04:00] VITALS: BP 124/74
[2021-04-30] MEDS: ACETAMINOPHEN ES 500 MG TABLET PO SCH ×3 (05:23→21:13)
--- NOTE | 2021-04-30 06:06 | NUR ---
VS stable. Slept in between care. Medicated with Frakes once with he3lp. Refused any laxative offered. No BM since 04/27 per report. Will endorse to oncoming nurse. All needs attended and met. No significant event reported all night. Continue current rehab plan of care.
[2021-04-30 08:00] VITALS: BP 128/85
[2021-04-30] MEDS: CITALOPRAM 10 MG TABLET PO SCH (10:43)
[2021-04-30] MEDS: ENSURE ENLIVE (VAN) 240 ML LIQUID PO SCH ×2 (10:44→17:07)
[2021-04-30] MEDS: MORPHINE SULFATE SR 30 MG TABLET.SA PO SCH ×2 (10:44→21:13)
[2021-04-30] MEDS: DOCUSATE SODIUM 100 MG CAPSULE PO SCH ×2 (10:44→17:05)
[2021-04-30] MEDS: GABAPENTIN 100 MG CAPSULE PO SCH ×3 (10:45→17:05)
[2021-04-30] MEDS: QUETIAPINE FUMARATE 100 MG TABLET PO SCH ×2 (10:45→17:05)
[2021-04-30] MEDS: OLANZAPINE 5 MG TABLET PO SCH ×2 (10:46→17:05)
[2021-04-30] MEDS: ENOXAPARIN SODIUM 40 MG/0.4 ML DISP.SYRIN SQ SCH (10:46)
[2021-04-30 16:00] VITALS: BP 122/78
[2021-04-30 20:24] VITALS: BP 121/76
[2021-04-30] MEDS: TEMAZEPAM 15 MG CAPSULE PO PRN (21:13)
[2021-05-01] MEDS: HYDROCODONE/APAP 10-325 MG TABLET PO PRN ×3 (02:47→17:51)
[2021-05-01 04:21] VITALS: BP 122/75
[2021-05-01] MEDS: ACETAMINOPHEN ES 500 MG TABLET PO SCH ×3 (05:01→21:59)
[2021-05-01 07:37] VITALS: BP 122/73
[2021-05-01] MEDS: DOCUSATE SODIUM 100 MG CAPSULE PO SCH ×2 (09:35→16:48)
[2021-05-01] MEDS: QUETIAPINE FUMARATE 100 MG TABLET PO SCH ×2 (09:35→16:47)
[2021-05-01] MEDS: CITALOPRAM 10 MG TABLET PO SCH (09:35)
[2021-05-01] MEDS: MORPHINE SULFATE SR 30 MG TABLET.SA PO SCH ×2 (09:36→20:59)
[2021-05-01] MEDS: GABAPENTIN 100 MG CAPSULE PO SCH ×3 (09:36→16:48)
[2021-05-01] MEDS: OLANZAPINE 5 MG TABLET PO SCH ×2 (09:37→16:47)
[2021-05-01] MEDS: ENOXAPARIN SODIUM 40 MG/0.4 ML DISP.SYRIN SQ SCH (09:37)
[2021-05-01] MEDS: ENSURE ENLIVE (VAN) 240 ML LIQUID PO SCH ×2 (09:38→17:23)
--- NOTE | 2021-05-01 19:00 | NUR ---
Patient AOx4. On room air. No signs of acute distress. Compliant with medications and care. Participated with Physical and Occupational therapy. Bed locked and in low position for safety. Patient complained of 7/10 pain, pain medication given as ordered. Will endorse to incoming shift for continuity of care.
[2021-05-01 20:41] VITALS: BP 118/75
--- NOTE | 2021-05-01 22:41 | NUR ---
Received pt sleeping comfortably. Aroused easily to verbal stimuli. AAO x4. No acute distress noted. Medicated for pain as ordered. Safety measures maintained. Call light and personal items within reach. Will continue to monitor.
[2021-05-02] MEDS: HYDROCODONE/APAP 10-325 MG TABLET PO PRN ×3 (04:18→16:55)
[2021-05-02 05:10] VITALS: BP 128/80
[2021-05-02] MEDS: ACETAMINOPHEN ES 500 MG TABLET PO SCH ×3 (05:42→21:04)
[2021-05-02 08:00] VITALS: BP 139/76
[2021-05-02] MEDS: OLANZAPINE 5 MG TABLET PO SCH ×2 (08:07→16:48)
[2021-05-02] MEDS: QUETIAPINE FUMARATE 100 MG TABLET PO SCH ×2 (08:08→16:48)
[2021-05-02] MEDS: DOCUSATE SODIUM 100 MG CAPSULE PO SCH ×2 (08:08→16:48)
[2021-05-02] MEDS: MORPHINE SULFATE SR 30 MG TABLET.SA PO SCH ×2 (08:08→20:03)
[2021-05-02] MEDS: GABAPENTIN 100 MG CAPSULE PO SCH ×3 (08:08→16:48)
[2021-05-02] MEDS: CITALOPRAM 10 MG TABLET PO SCH (08:08)
[2021-05-02] MEDS: ENOXAPARIN SODIUM 40 MG/0.4 ML DISP.SYRIN SQ SCH (08:09)
[2021-05-02] MEDS: ENSURE ENLIVE (VAN) 240 ML LIQUID PO SCH ×2 (08:13→17:33)
--- NOTE | 2021-05-02 09:40 | NUR ---
Patient in bed, alert and oriented x 4, dressing intact on the right elbow on room air saturating at 95%. [id number] upon assessment. All due meds given per MD order. Walking in the corridor with PT will continue to monitor.
[2021-05-02 16:37] VITALS: BP 121/71
[2021-05-02 20:27] VITALS: BP 125/77
--- NOTE | 2021-05-02 20:48 | NUR ---
Received pt resting in bed. AAO x4. Visitor at bedside. No acute distress noted. C/o 8/10 pain on the right elbow area. Routine pain med given as ordered. Safety measures maintained. Call light and personal items within reach. Will continue to monitor.
[2021-05-03] MEDS: HYDROCODONE/APAP 10-325 MG TABLET PO PRN ×2 (02:20→14:44)
[2021-05-03 04:50] VITALS: BP 122/79
[2021-05-03 06:14] LABS: CARBON DIOXIDE 28 mmol/L (21-32); CHLORIDE 101 mmol/L (98-107); CREATININE 0.7 mg/dL (0.6-1.3); GLUCOSE 91 mg/dL (74-106); POTASSIUM 4.2 mmol/L (3.5-5.1); UREA NITROGEN, BLOOD 15 mg/dL (7-18)
[2021-05-03] MEDS: ACETAMINOPHEN ES 500 MG TABLET PO SCH ×3 (06:15→22:01)
[2021-05-03 06:52] LABS: BASOPHILS % (AUTO) 0.7 % (0.0-2.0); EOSINOPHILS # (AUTO) 0.2 K/uL (0.0-0.7); EOSINOPHILS % (AUTO) 4.5 % (0.0-7.0); HEMATOCRIT 38.6 % (36.7-47.1); LYMPHOCYTES # (AUTO) 1.8 K/uL (20.0-40.0); LYMPHOCYTES % (AUTO) 37.4 % (20.5-51.5); MEAN CORPUSCULAR HEMOGLOBIN 30.1 uug (23.8-33.4); MEAN CORPUSCULAR HGB CONC 34 g/dL (32.5-36.3); MEAN CORPUSCULAR VOLUME 89.3 fL (73.0-96.2); MONOCYTES # (AUTO) 0.6 K/uL (2.0-10.0); MONOCYTES % (AUTO) 13.7 % (0.0-11.0); NEUTROPHILS # (AUTO) 2.1 K/uL (1.8-8.9); NEUTROPHILS % (AUTO) 43.7 % (38.5-71.5); PLATELET COUNT (AUTO) 421 K/uL (152-348); RED BLOOD CELL COUNT(AUTO) 4.33 MIL/uL (4.06-5.63); WHITE BLOOD COUNT (AUTO) 4.7 K/uL (3.6-10.2)
[2021-05-03 08:00] VITALS: BP 126/72
[2021-05-03] MEDS: ENOXAPARIN SODIUM 40 MG/0.4 ML DISP.SYRIN SQ SCH (08:33)
[2021-05-03] MEDS: MORPHINE SULFATE SR 30 MG TABLET.SA PO SCH ×2 (08:37→20:33)
[2021-05-03] MEDS: OLANZAPINE 5 MG TABLET PO SCH ×2 (08:37→16:03)
[2021-05-03] MEDS: QUETIAPINE FUMARATE 100 MG TABLET PO SCH ×2 (08:37→16:03)
[2021-05-03] MEDS: GABAPENTIN 100 MG CAPSULE PO SCH ×3 (08:37→16:03)
[2021-05-03] MEDS: CITALOPRAM 10 MG TABLET PO SCH (08:37)
[2021-05-03] MEDS: DOCUSATE SODIUM 100 MG CAPSULE PO SCH ×2 (08:37→16:03)
[2021-05-03] MEDS: ENSURE ENLIVE (VAN) 240 ML LIQUID PO SCH ×2 (08:38→17:32)
--- NOTE | 2021-05-03 11:27 | NUR ---
Patient in bed, alert and oriented x 4, cooperative upon assessment, on room air saturating at 95% no s/s of distress, all due meds given per MD order. Per Dr. Yan JOHNSON to remove the atul. [place] were removed and slight redness noted with no discharges notes. Left open to air and continue to monitor. Patient denies of ay pain.
[2021-05-03 16:57] VITALS: BP 115/75
[2021-05-03 20:21] VITALS: BP 119/71
[2021-05-04] MEDS: HYDROCODONE/APAP 10-325 MG TABLET PO PRN ×3 (01:48→16:42)
[2021-05-04 04:21] VITALS: BP 119/68
[2021-05-04] MEDS: ACETAMINOPHEN ES 500 MG TABLET PO SCH ×3 (05:47→21:40)
--- NOTE | 2021-05-04 06:35 | NUR ---
Shift End Report: VS stable. Medicated twice with [place] PRN for right elbow pain with help. No further complaint presented. All needs attended and met. No significant event reported all night. Continue current rehab plan of care.
[2021-05-04 08:00] VITALS: BP 124/68
[2021-05-04] MEDS: DOCUSATE SODIUM 100 MG CAPSULE PO SCH ×2 (08:45→16:41)
[2021-05-04] MEDS: CITALOPRAM 10 MG TABLET PO SCH (08:45)
[2021-05-04] MEDS: GABAPENTIN 100 MG CAPSULE PO SCH ×3 (08:46→16:41)
[2021-05-04] MEDS: QUETIAPINE FUMARATE 100 MG TABLET PO SCH ×2 (08:46→16:41)
[2021-05-04] MEDS: OLANZAPINE 5 MG TABLET PO SCH ×2 (08:46→16:41)
[2021-05-04] MEDS: MORPHINE SULFATE SR 30 MG TABLET.SA PO SCH (08:46)
[2021-05-04] MEDS: ENOXAPARIN SODIUM 40 MG/0.4 ML DISP.SYRIN SQ SCH (08:47)
[2021-05-04] MEDS: ENSURE ENLIVE (VAN) 240 ML LIQUID PO SCH ×2 (08:48→16:42)
[2021-05-04 15:53] VITALS: BP 127/79
--- NOTE | 2021-05-04 18:20 | NUR ---
Pt finishing dinner, no acute distress. Due medications given per order, no a/r noted. Pt medicated PRN for Right hip and tailbone pain, per pt, effective. Pt tolerated rehab therapy well today, ambulated in hallway with Left crutch. R elbow incision C/D/I, open to air, pink, no drainage noted. Will endorse to night manager nurse for continuity of care.
[2021-05-04 20:00] VITALS: BP 112/59
[2021-05-04] MEDS: MORPHINE SULFATE SR 15 MG TABLET.SA PO SCH (20:35)
[2021-05-05] MEDS: HYDROCODONE/APAP 10-325 MG TABLET PO PRN ×2 (02:58→15:35)
[2021-05-05 04:00] VITALS: BP 112/64
[2021-05-05] MEDS: ACETAMINOPHEN ES 500 MG TABLET PO SCH ×2 (05:15→13:46)
--- NOTE | 2021-05-05 06:12 | NUR ---
Shift End Report: Slept in between care. Medicated with Brantley 2x for complaint of tailbone pain with help. No further complaint presented. All needs attended and met. No significant event reported all night. Continue care as planned.
[2021-05-05 07:57] VITALS: BP 122/68
[2021-05-05] MEDS: CITALOPRAM 10 MG TABLET PO SCH (09:09)
[2021-05-05] MEDS: QUETIAPINE FUMARATE 100 MG TABLET PO SCH ×2 (09:10→17:17)
[2021-05-05] MEDS: GABAPENTIN 100 MG CAPSULE PO SCH ×3 (09:10→17:17)
[2021-05-05] MEDS: ENSURE ENLIVE (VAN) 240 ML LIQUID PO SCH ×2 (09:10→17:19)
[2021-05-05] MEDS: OLANZAPINE 5 MG TABLET PO SCH ×2 (09:10→17:17)
[2021-05-05] MEDS: DOCUSATE SODIUM 100 MG CAPSULE PO SCH ×2 (09:10→17:16)
[2021-05-05] MEDS: MORPHINE SULFATE SR 15 MG TABLET.SA PO SCH (09:11)
[2021-05-05] MEDS: ENOXAPARIN SODIUM 40 MG/0.4 ML DISP.SYRIN SQ SCH (09:19)
[2021-05-05 16:07] VITALS: BP 102/58
--- NOTE | 2021-05-05 16:55 | NUR ---
Received call from Dr. Heredia and gave an order for discharge to home with home health. Informed MD regarding X-Ray result of right elbow done 05/04/21 and MD said that patient is OK to go home and need to follow up with orthopedic surgeon. Patient made aware and is agreeable.
--- NOTE | 2021-05-05 17:00 | NUR ---
Discharge instructions provided to the patient with verbalized understanding. Discharge papers signed by and given to the patient. All belongings well accounted for. Patient remains alert, oriented x 4, not in any form of distress, on room air. Patient is ambulatory with left crutch. He denies any pain or discomfort at this time. Surgical incision well coaptated, dry, no signs or symptoms of infection. Vital signs stable. Discharge photos taken. Discharge medication and prescription faxed to [facility]. Dr. Heredia will do electronic prescription for pain medications. Patient assisted to the lobby via wheelchair safely. Patient picked up by girlfriend Jimena via private car.
== END 2021-05-05 19:00 | disposition home health service (06) | DRG 862 ==
PROVIDERS: ADMIT Physical Medicine & Rehabilitation Pain Medicine; ATTEND Physical Medicine & Rehabilitation Pain Medicine
DX: S32.592D Other specified fracture of left pubis, subsequent encounter for fracture with routine healing (principal); D68.59 Other primary thrombophilia; S32.591D Other specified fracture of right pubis, subsequent encounter for fracture with routine healing; S01.81XD Laceration without foreign body of other part of head, subsequent encounter; S52.021D Displaced fracture of olecranon process without intraarticular extension of right ulna, subsequent encounter for closed fracture with routine healing; S27.0XXD Traumatic pneumothorax, subsequent encounter; W17.89XD Other fall from one level to another, subsequent encounter; J45.909 Unspecified asthma, uncomplicated; F20.9 Schizophrenia, unspecified; F31.89 Other bipolar disorder; F12.90 Cannabis use, unspecified, uncomplicated
CPT/HCPCS: 36415; 70030-TC; 71045; 72170; 73080; 85025; 93005; A4663; A9150; J1170; J1650; J2060; J2543; J7050; J7060; Q0162